=== PATIENT | male | born 1990 ===

== ENCOUNTER 2017-10-13 05:48 | Emergency (ER) | payer SELFPAY ==
[~2017-10-13] VITALS: Ht 182.9 cm; Wt 99.8 kg
[2017-10-13 05:52] VITALS: Ht 182.9 cm; Wt 99.8 kg
[2017-10-13 06:48] LABS: BASOPHIL % 0.5 % (0-2); PLATELET COUNT 257 x10^3mcL (130-400); RED CELL DISTRIBUTION WIDTH 13.2 % (11.5-14.5)
[2017-10-13 07:07] LABS: CALCIUM 10.4 mg/dL (8.5-10.1); CARBON DIOXIDE 24.7 mmol/L (21-32); CHLORIDE SERUM 100 mmol/L (98-107); CREATININE SERUM 0.5 mg/dL (0.7-1.3); GFR1 > 60 mL/min; GLUCOSE SERUM 101 mg/dL (74-106); POTASSIUM SERUM 3.9 mmol/L (3.5-5.1); SODIUM SERUM 138 mmol/L (136-145)
[2017-10-13 07:12] LABS: ALKALINE PHOSPHATASE 57 U/L (46-116); ALT/SGPT 40 U/L (16-63); AST/SGOT 33 U/L (15-37); BILIRUBIN TOTAL 1.33 mg/dL (0.20-1.00); TOTAL PROTEIN, SERUM 8.6 g/dL (6.4-8.2)
[2017-10-13 07:31] LABS: AMPHETAMINE QUAL UR POSITIVE (NEG <=1000)
[2017-10-13 08:11] VITALS: BP 182/108
== END 2017-10-13 08:11 | disposition home or self-care (01) ==
LOC: EDBD 05:48 → ED 05:48
PROVIDERS: Emergency Medicine
DX: F10.239 Alcohol dependence with withdrawal, unspecified (principal)
CPT/HCPCS: G0480; J7030